=== PATIENT | female | born 1995 ===

== ENCOUNTER 2024-05-25 14:16 | Emergency (ER) | payer MEDICAID ==
[~2024-05-25] VITALS: Ht 165.1 cm; Wt 70.0 kg
[2024-05-25 14:20] VITALS: BP 136/76; PULSE 88; RESP 16; TEMP 98.8; O2SAT 100
== END 2024-05-25 17:52 | disposition left against medical advice (07) ==
LOC: ER 14:16
DX: F41.9 Anxiety disorder, unspecified (principal); Z53.21 Procedure and treatment not carried out due to patient leaving prior to being seen by health care provider